=== PATIENT | male | born 1955 | race Caucasian/White ===

== ENCOUNTER 2017-01-24 08:54 | Day surgery (SDC) | payer BC, OTHER ==
[~2017-01-24 08:54] MED LIST: RINGER'S SOLUTION,LACTATED 1,000 ML IV PRN
[2017-01-24 12:46] VITALS: BP 116/69
--- NOTE | 2017-01-24 12:51 | OR ---
Operative Report - Dictated Report Narrative: Date: 01/24/2017 Preop dx: Screen for colon cancer Postop dx: Probable hyperplastic polyps of the rectosigmoid. Mild internal hemorrhoids. Procedure: Total colonoscopy. Biopsy polyps at 35, 30, 20 cm Staff surgeon: Ananda Garcia MD Anesthesia: MAC per [employer]PER[employer]OR Specimens: polyps at 35, 30, 20 cm EBL: miniminal Description: After informed consent and appropriate sedation the patient was placed in the left lateral decubitus position. A flexible fiberoptic video colonoscope was introduced and advanced under direct vision without difficulty to the cecum. The usual landmarks were identified. Preparation was excellent and excellent views were obtained. The findings were of a normal cecum, ascending colon, hepatic flexure, transverse colon, splenic flexure, descending colon. There were scattered small probable hyperplastic polyps of the rectosigmoid. Heel Painter biopsies were taken at 35 and 30 cm with cold forceps. A slightly larger one was biopsied with cold forceps and then destroyed with electrocautery. Retroflex shows mild internal hemorrhoids. The patient tolerated the procedure well without apparent complication was discharged from the endoscopy suite in stable condition.
== END 2017-01-24 08:55 | disposition home or self-care (01) ==
LOC: AMB 08:54
PROVIDERS: ATTEND Specialist
PROC: 0DBN8ZX Excision of Sigmoid Colon, Via Natural or Artificial Opening Endoscopic, Diagnostic (ICD-10-PCS; 2017-01-24)
PROC: 0DBE8ZX Excision of Large Intestine, Via Natural or Artificial Opening Endoscopic, Diagnostic (ICD-10-PCS; principal; 2017-01-24 10:15)
DX: Z12.11 Encounter for screening for malignant neoplasm of colon (principal); K63.5 Polyp of colon; K64.8 Other hemorrhoids; Z68.29 Body mass index [BMI] 29.0-29.9, adult